=== PATIENT | female | born 1955 | race Caucasian/White ===

== ENCOUNTER → 2016-05-17 | Outpatient (CLI) | payer OTHER ==
[~2016-05-17] MED LIST: ALBUTEROL 0.5ML INH; ALBUTEROL17 G1 IH; ALBUTEROL17 GM INH; ALPRAZOLAM PO; ALPRAZOLAM0.5 MG PO; AZITHROMYCIN500 MG PO; BACTRIM DS TABL1 TAB PO; COMBIVENT U/D3 M1 INH; FLEXERIL; FLEXERIL10 MG PO; HYDROCODON-ACE1 EAC5 PO; IBUPROFEN800 MG PO; K-DUR10 MEQ PO; KCL PO; KEFLEX PO; LANTUS100 U/ML; LEVAQUIN; LEVAQUIN PO; LEVEMIR SUBQ; LISINOPRIL5 MG PO; LORTAB 10-5001 EACH PO; LORTAB 10/500 T1 TAB PO; LORTAB 101 TAB 10/5 PO; MEDROL DOSEPAK4 MG PO; METFORMIN; METFORMIN PO; NEBULIZER1 PKT MC; NORVASC PO; OXYCODON HCL-1 UDTAB PO; PEGASYS180 MCG/0. SQ; PHENERGAN W/CO120 ML PO; PHENERGAN25 M1 PO; PHENERGAN25 MG PO; POTASSIUM CHLO10 MEQ PO; PREDNISONE; PRILOSEC20 MG PO; PRILOSEC40 MG PO; PROCRIT20000 U/ML IJ; PROTONIX PO; RIBASPHERE200 MG PO; SLOW-MAG64 MG PO; ULTRAM PO; VIT D PO; VITAL-D RX TABL1 TAB PO; XANAX XR0.5 MG PO; XANAX0.5 MG PO; ZESTRIL10 M1 PO; ZESTRIL5 MG PO; ZITHROMAX1 G/PKT PO; ZOLOFT50 MG PO; [UNRECOGNIZED DRUG - OTHER]
--- NOTE | ~2016-05-17 | US5 ---
[facility] A Service of [facility] RADIOLOGY TEXT RESULTS PATIENT: DEYANIRA AL LOCATION: [facility] : 59 UNIT #: [id number] AGE: [address]: Joo Caldwell MD SEX: F ORDER DR: [id number] [facility] [address] [place], [place] [address] [id number] O MR#: [id number] Acc #: [id number] NAME: DEYANIRA AL : 1955 SEX: F STUDY DATE/TIME: 05/17/2016 10:23 UNIT: [facility] ROOM: STUDY DESCRIPTION: US Abdominal Complete Attending Physician: Joo Caldwell III, M.D. Referring Physician: Joo Caldwell III, M.D. Ordering Physician: Joo Caldwell III, M.D. Primary Care Physician: Ana Cristina Valderrama M.D. MEDICAL IMAGING REPORT This report is preliminary unless electronic signature is present EXAM Complete abdominal ultrasound 05/17/2016 HISTORY Hepatitis C virus. COMPARISON Complete abdominal ultrasound 11/21/2015. FINDINGS Abdominal aortic caliber is within normal limits measuring up to 2.8 cm proximally. Abdominal aorta demonstrates normal color and spectral Doppler flow. Normal color flow is seen within the IVC. Portions of the pancreas are obscured by bowel gas but the visualized pancreas appears normal. Liver demonstrates a coarsened echotexture, but no focal liver lesions are identified. Liver measures up to 19.1 cm in length, compared to 18.8 cm on the previous exam. The right kidney measures 14.2 cm and the left kidney 11.9 cm in length without focal cortical lesion, shadowing stone or hydronephrosis. Spleen size is normal, slightly over 10 cm. Gallbladder is free of shadowing stone, sludge, wall thickening or pericholecystic fluid. Common bile duct caliber is normal, 4 mm, and no intrahepatic biliary ductal dilation is seen. There is no ascites. IMPRESSION 1. Mild hepatomegaly. Coarsened hepatic echotexture suggesting features of patient's known underlying hepatitis, or potentially steatosis. No focal or suspicious liver lesions are identified. 2. Remainder of examination is within normal limits. [facility]. [facility] A Service of [facility] RADIOLOGY TEXT RESULTS PATIENT: DEYANIRA AL LOCATION: [facility] #: [id number] : 59 UNIT #: [id number] AGE: [address]: Joo Caldwell MD SEX: F ORDER DR: Dictated by... Carin Reynoso M.D. THIS IS AN ELECTRONICALLY VERIFIED REPORT Carin Reynoso M.D. at 05/23/2016 11:57 AM EVELIN/marry TD: 05/17/2016 18:59 JOB #: [id number] MEDICAL IMAGING REPORT COPY
== END | disposition home or self-care (01) ==
LOC: CGUS 09:48
DX: B19.20 Unspecified viral hepatitis C without hepatic coma (principal)
CPT/HCPCS: 76700

== ENCOUNTER → 2016-09-11 | Outpatient (CLI) | payer OTHER ==
--- NOTE | ~2016-09-11 | CR63 ---
[facility] A Service of [facility] RADIOLOGY TEXT RESULTS PATIENT: DEYANIRA AL LOCATION: [facility] : 59 UNIT #: [id number] AGE: [address]: Mercedes Silverio APRN SEX: F ORDER DR: [id number] [facility] [address] [place], [place] [address] [id number] O MR#: [id number] Acc #: [id number] NAME: DEYANIRA AL : 1955 SEX: F STUDY DATE/TIME: 09/11/2016 11:23 UNIT: [facility] ROOM: STUDY DESCRIPTION: CR Chest 2 View Attending Physician: Mercedes Silverio Aprn Referring Physician: Mercedes Silverio Aprn Ordering Physician: Mercedes Silverio Aprn Primary Care Physician: Ana Cristina Valderrama M.D. MEDICAL IMAGING REPORT This report is preliminary unless electronic signature is present EXAM Chest 2 views dated 09/11/2016 COMPARISON STUDIES Chest 2 views dated 09/07/2015 HISTORY Cough and wheezing for 2 weeks. Patient takes blood pressure medications. No history of cancer. Patient has smoked half pack a day for 20 years. FINDINGS Two views of the chest were obtained. Lungs are well aerated. Heart and mediastinum are within normal limits. Mild degenerative changes are noted in the thoracic spine. Dictated by... Idalmis Phillip M.D. THIS IS AN ELECTRONICALLY VERIFIED REPORT Idalmis Phillip M.D. at 09/12/2016 2:24 PM CPR/nestor TD: 09/11/2016 16:59 JOB #: [id number] MEDICAL IMAGING REPORT Page 1 of 1 COPY
== END | disposition home or self-care (01) ==
LOC: CRAD 11:11
DX: R06.2 Wheezing (principal); R05 Cough
CPT/HCPCS: 71020

== ENCOUNTER → 2016-11-11 | Outpatient (CLI) | payer OTHER ==
--- NOTE | ~2016-11-11 | US5 ---
[facility] A Service of [facility] RADIOLOGY TEXT RESULTS PATIENT: DEYANIRA AL LOCATION: [facility] : 59 UNIT #: [id number] AGE: [address]: Joo Caldwell MD SEX: F ORDER DR: [id number] [facility] [address] [place], [place] [address] [id number] O MR#: [id number] Acc #: [id number] NAME: DEYANIRA AL : 1955 SEX: F STUDY DATE/TIME: 11/11/2016 10:15 UNIT: [facility] ROOM: STUDY DESCRIPTION: US Abdominal Complete Attending Physician: Joo Caldwell III, M.D. Referring Physician: Joo Caldwell III, M.D. Ordering Physician: Joo Caldwell III, M.D. Primary Care Physician: Ana Cristina Valderrama M.D. MEDICAL IMAGING REPORT This report is preliminary unless electronic signature is present EXAM Ultrasound abdomen, complete, 11/11/2016 HISTORY A 61-year-old female 2 years status post completion of medical therapy for hepatitis C. Surveillance examination. Chronic liver disease. TECHNIQUE Rick-scale ultrasound imaging of the upper abdomen. COMPARISON Ultrasound abdomen 05/17/2016 FINDINGS Mild hepatomegaly. Diffusely echodense and mildly heterogeneous hepatic parenchyma may be secondary to the patient's chronic liver disease or diffuse hepatic steatosis. The spleen is at the upper limits of normal in size, measuring about 11.5 cm. There is no upper abdominal ascites. Gallbladder is negative with no cholelithiasis or wall thickening, there is no intrahepatic or extrahepatic bile duct dilatation. Visualized portions of the pancreas are within normal limits. Abdominal aorta is normal in caliber, the intrahepatic IVC is patent. Both kidneys are negative with no visible nephrolithiasis, renal mass or evidence of urinary obstruction. IMPRESSION 1. Echodense and mildly heterogeneous hepatic parenchyma likely secondary to patient's known chronic liver disease. Hepatic steatosis is also possible. No mass or other focal liver lesion is identified. 2. Mild hepatomegaly and borderline splenomegaly, unchanged. [facility] A Service of [facility] RADIOLOGY TEXT RESULTS PATIENT: DEYANIRA AL [id number] : 59 UNIT #: [id number] AGE: [address]: Joo Caldwell MD SEX: F ORDER DR: 3. Remainder of the examination is negative. Dictated by... João Estevez M.D. THIS IS AN ELECTRONICALLY VERIFIED REPORT João Estevez M.D. at 11/11/2016 11:07 PM Gerson TD: 11/11/2016 21:24 JOB #: [id number] MEDICAL IMAGING REPORT Page 1 of 1 COPY
== END | disposition home or self-care (01) ==
LOC: CGUS 09:55
DX: B18.2 Chronic viral hepatitis C (principal); R16.0 Hepatomegaly, not elsewhere classified
CPT/HCPCS: 76700